=== PATIENT | female | born 1960 | race Caucasian/White ===

== ENCOUNTER → 2016-11-10 | Outpatient (CLI) | payer BC | LOC: GMAM 14:44 | PROVIDERS: ATTEND Family Medicine | DX: R31.29 Other microscopic hematuria (principal) ==

== ENCOUNTER → 2016-11-17 | Outpatient (CLI) | payer BC | LOC: GMA 17:08 | PROVIDERS: ATTEND Nurse Practitioner Family | DX: N30.00 Acute cystitis without hematuria (principal) ==

== ENCOUNTER → 2016-11-26 | Outpatient (CLI) | payer BC | LOC: GMAM 13:04 | PROVIDERS: ATTEND Family Medicine | DX: N39.0 Urinary tract infection, site not specified (principal) ==

== ENCOUNTER → 2016-12-14 | Outpatient (CLI) | payer BC | END | disposition home or self-care (01) | LOC: GMA 14:22 | PROVIDERS: ATTEND Nurse Practitioner Family | DX: N39.0 Urinary tract infection, site not specified (principal) ==

== ENCOUNTER → 2017-01-04 | Outpatient (CLI) | payer BC | LOC: GMA 18:02 | PROVIDERS: ATTEND Nurse Practitioner Family | DX: N30.00 Acute cystitis without hematuria (principal) ==

== ENCOUNTER → 2017-02-10 | Outpatient (CLI) | payer BC ==
--- NOTE | 2017-02-10 13:09 | RAD ---
EXAM DESCRIPTION: Knee,Left Complete CLINICAL HISTORY: 56 years,Female,PAIN IN LEFT KNEE COMPARISON: None FINDINGS: The left knee demonstrates no fractures, dislocations, or other acute bony abnormalities. The joint spaces severe complete loss of medial compartment. Large osteophyte changes seen in the medial compartment followed by the patellofemoral compartment lateral compartment. Mild loss of joint space and patellofemoral compartment. The soft tissues demonstrate calcification posterior to the knee joint multiple largest of the 1.9 cm. No joint effusion. IMPRESSION: Severe left knee medial compartment osteophytic changes and mild to moderate lateral and patellofemoral. And multiple loose bodies and/or bursal calcifications in the posterior fossa Electronically signed by: Sudhir Rojas MD 02/10/2017 1:07 PM CDT
--- NOTE | 2017-02-10 13:11 | RAD ---
EXAM DESCRIPTION: Pelvis CLINICAL HISTORY: 56 years, Female, PAIN IN LEFT HIP COMPARISON: None. FINDINGS: Pelvis demonstrates no fractures or other acute bony abnormalities. Joint spaces in the hips appear unremarkable for age. Posterior instrumentation fusion of the lower lumbar spine partially included exam. IMPRESSION: Age-appropriate pelvis and hips Electronically signed by: Sudhir Rojas MD 02/10/2017 1:09 PM CDT
== END | disposition home or self-care (01) ==
LOC: RAD 08:18
PROVIDERS: ATTEND Orthopaedic Surgery
DX: M25.562 Pain in left knee (principal); M25.552 Pain in left hip

== ENCOUNTER → 2017-07-14 | Outpatient (CLI) | payer BC ==
--- NOTE | 2017-07-14 16:54 | MRI ---
MRI left knee without contrast INDICATION: Knee pain chronic osteoarthrosis TECHNIQUE: Noncontrast MR imaging left knee standard protocol FINDINGS: There is a diffuse ill-defined high-grade tear of the ACL likely chronic with interstitial mucoid degeneration and ganglion formation. PCL is intact. There are numerous intra-articular bodies especially along the posterior aspect of the knee. There is also a moderate Santos's cyst with intracystic bodies. Severe [id number] osteoarthrosis throughout the medial tibiofemoral compartment Degenerative diffuse macerated tear of the medial meniscus with volume loss. Minimal degenerative change lateral meniscus. Minimal extensor tendinosis without rupture. There is grade 4 multifocal chondrosis medial patellar facet with subchondral edema and mild subchondral cystic change. Vague chondrosis of the trochlea. Marginal osteophytes are noted largest medially. Fairly large joint effusion with diffuse synovitis/debris. There is bowing and laxity of the MCL related to the osteoarthrosis of the medial tibiofemoral compartment. Mild interstitial fissuring of the distal conjoined tendon and bicep femoris. IMPRESSION: Severe osteoarthrosis of the medial tibiofemoral compartment with lower grade osteoarthrosis of the patellofemoral joint and lateral tibiofemoral compartments Diffuse macerated degenerative extruded medial meniscal tear Multiple intra-articular bodies Large joint effusion with synovitis/debris Remote/chronic high-grade ACL tear. Santos's cyst with intracystic bodies Electronically signed by: Jah Bishop MD 07/14/2017 4:52 PM CDT
--- NOTE | 2017-07-15 14:00 | MAM ---
EXAM DESCRIPTION: 3D Screening BILATERAL CLINICAL HISTORY: 57 yearsFemaleSCREENING. No complaints. No family history of breast cancer. Postmenopausal. HRT five or more years ago.. COMPARISON: 2-D digital screening bilateral study, 03/19/2014. No prior reports available. TECHNIQUE: Bilateral CC and MLO projection full-field images, 3-D tomosynthesis digital mammographic technique. Also bilateral synthesized CC/ MLO full-field images. CAD not utilized. FINDINGS: The breast parenchymal density pattern is: Scattered areas of fibroglandular density. No skin thickening or nipple retraction bilateral solitary microcalcifications. Bilateral intramammary lymph nodes. Bilateral vascular calcifications. No focal, stellate mass or density, focal asymmetry , and no suspicious microcalcifications bilaterally. Stable mammograms compared to prior study, taking into account differences in mammographic technique IMPRESSION: BI-RADS CATEGORY: 2 - BENIGN FINDINGS. FOLLOW UP: Routine digital bilateral screening, one year interval from July 2017. Written communication explaining the findings and follow-up, will be mailed to the patient and referring health care provider. According to the [employer], yearly mammograms are recommended starting at age 40 and continuing as long as a woman is in good health. Any breast change noted on a breast self-exam should be reported promptly to the patient's healthcare provider. Breast MRI is recommended for women with an approximately 20-25% or greater lifetime risk of breast cancer, including women with a strong family history of breast or ovarian cancer and women who have been treated for Hodgkin's disease. A negative mammographic report should not delay tissue diagnosis in patients with significant clinical history or physical findings. Extremely dense breast tissue limits the sensitivity of digital mammography. Electronically signed by: Be Abad MD 07/15/2017 1:59 PM CDT
== END | disposition home or self-care (01) ==
LOC: MRI 10:43
PROVIDERS: ATTEND Family Medicine
DX: Z12.31 Encounter for screening mammogram for malignant neoplasm of breast (principal); M17.12 Unilateral primary osteoarthritis, left knee; M71.22 Synovial cyst of popliteal space [Baker], left knee; M25.462 Effusion, left knee
CPT/HCPCS: 73721; 77063; G0202

== ENCOUNTER → 2018-08-03 | Outpatient (CLI) | payer BC | LOC: GMAM 17:50 | PROVIDERS: ATTEND Family Medicine | DX: E55.9 Vitamin D deficiency, unspecified (principal); R53.83 Other fatigue ==

== ENCOUNTER → 2019-02-05 | Outpatient (CLI) | payer BC | LOC: GMAM 11:47 | PROVIDERS: ATTEND Family Medicine | DX: Z00.00 Encounter for general adult medical examination without abnormal findings (principal) ==

== ENCOUNTER 2019-07-13 12:45 | Inpatient (IN) | payer BC ==
[2019-07-13] MEDS ORDERED: SODIUM CHLORIDE 0.9% 1000ML 1,000 ML IVS PRN (13:21)
[2019-07-13] MEDS ORDERED: ONDANSETRON INJ 4 MG/2 ML VIAL IV ONE (13:21)
[2019-07-13] MEDS ORDERED: KETOROLAC TROMETHAMINE INJ 30 MG/ML VIAL IV ONE (13:21)
[2019-07-13] MEDS ORDERED: SODIUM CHLORIDE 0.9% (FLUSH) 10 ML SYG IV PRN ×2 (13:21→19:48)
[2019-07-13] MEDS ORDERED: ACETAMINOPHEN 325 MG TAB PO ONE (13:23)
--- NOTE | 2019-07-13 13:23 | ED.PDOC ---
History of Present Illness - General Chief Complaint: Fever Stated Complaint: fever,PALACIOS,shaking Time Seen by Provider: 07/13/19 13:08 Source: patient - History of Present Illness Initial Comments: 59 yo female who presents with cc of fevers. Reports onset of illness 3 days ago. First began as ache in her low back which radiated around to LLQ. Then developed a fever with Tmax 103.1 F and reports has been spiking fevers around 103 F twice daily since then and having shaking for approx 30 mins until fever comes down with Tylenol/ibuprofen at home. Reports also some mild-moderate intermittent LLQ abd pain with radiation to left low back. Reports poor appetite and taking sips of water frequently at home but not eating many solids. Had some oatmeal yesterday and a little while later had 1 episode of large volume watery diarrhea but no other episodes of diarrhea reported. Reports nausea but no emesis. Reports mild sore throat, mild intermittent dry "nagging cough", and frequent body aches all over. Also reports frequent dull frontal headache which comes and goes, currently 8/10 severity, no radiation. Denies any neck pain or stiffness. Reports hx of frequent UTI's in the past but cur rently denies dysuria, hematuria. Not recently on Abx. No known recent sick contacts. States she was seen in the clinic 2 days ago and tested neg for flu and sent home and told she had a stomach bug. Review of Systems - Review of Systems Review of Systems: 07/13/19 13:29 see HPI All other Systems: Reviewed and Negative Past Medical History (General) - Patient Medical History Hx Stroke: No Hx of COPD: No Hx Congestive Heart Failure: No Hx Pacemaker: No Hx Hypertension: Yes Hx Diabetes: No Hx MRSA: No - Vaccination History Hx Influenza Vaccination: No Hx Pneumococcal Vaccination: Yes - Social History Hx Tobacco Use: Yes Family Medical History - Family History Mother Family History: Unknown Living Status: Still Living Physical Exam - Physical Exam General Appearance: Alert, No apparent distress Eye Exam: bilateral normal ENT Exam: normal ENT inspection, hearing grossly normal, TMs normal, pharynx normal Neck: non-tender, full range of motion, supple, normal inspection Respiratory: chest non-tender, lungs clear, normal breath sounds, no respiratory distress Cardiovascular/Chest: no murmur, tachycardia Gastrointestinal/Abdominal: soft, tenderness - moderate LUQ without guarding or rebound Extremity: normal range of motion, non-tender, no pedal edema, no calf tenderness Neurologic: no motor/sensory deficits, alert, normal mood/affect, oriented x 3 Skin Exam: normal color, warm/dry Lymphatic: no adenopathy Progress - Progress Progress: 07/13/19 13:31 Fevers -uncertain etiology as many nonspecific sx's. Suspect gastroenteritis/colitis most likely vs UTI vs diverticulitis vs PNA vs pharyngitis vs viral syndrome vs other. -pt with fever 101.3 F and HR 120s on arrival, BP normal, remainder of vitals stable, pt in NAD -obtain lactate, labs, UA, strep, CXR -place PIV, 1 L NS bolus, Toradol 30, Tylenol, Zofran 07/13/19 17:35 -Pt's labs revealed WBC 19,000 with 87% segs and no bands, lactate 1.1. Strep neg. UA reveals 5-10 WBC, 5-10 RBC, neg nitrites, 2+ bacteria - suspect possible UTI. Remainder of labs largely unremarkable. -Pt's HR improved to 100 following 2 L bolus, BP stable -discussed pt with Jesus Boss who accepts for admission for UTI, sepsis syndrome without severe features. Blood cx's x2 collected in ED. Begin on Rocephin 1 g IV. Hospitalist to consider CT A/P after admission. 07/13/19 13:21 Sodium Chloride 0.9% (Flush) [Saline Flush Syringe] 10 ml IV PRN PRN 07/13/19 14:07 STREP A SCREEN CULTURE Stat 07/13/19 15:14 BLOOD CULTURE Stat 07/13/19 17:36 ED Intent to Admit Routine Laboratory Results - last 24 hr 07/13/19 07/13/19 07/13/19 13:46 13:46 13:46 WBC 19.2 H RBC 4.36 Hgb 13.6 Hct 39.7 MCV 90.9 MCH 31.1 H MCHC 34.2 RDW 13.0 Plt Count 228 MPV 8.5 Absolute Neuts (auto) 16.70 H Absolute Lymphs (auto) 0.70 L Absolute Monos (auto) 1.70 H Absolute Eos (auto) 0.00 Absolute Basos (auto) 0.10 Neutrophils % 87.0 H Lymphocytes % 3.5 L Monocytes % 9.0 Eosinophils % 0.1 L Basophils % 0.4 Sodium 133 L Potassium 3.3 L Chloride 94 L Carbon Dioxide 24 Anion Gap 18.3 H BUN 16 Creatinine 0.66 BUN/Creatinine Ratio 24.2 H Random Glucose 143 H Serum Osmolality 270.0 L Lactic Acid 1.1 Calcium 9.0 Total Bilirubin 0.7 Direct Bilirubin 0.2 Indirect Bilirubin 0.5 AST 19 ALT 22 Alkaline Phosphatase 86 Serum Total Protein 8.0 Albumin 3.7 Urine Color Urine Appearance Urine pH Ur Specific Dickens Urine Protein Urine Glucose (UA) Urine Ketones Urine Blood Urine Nitrite Urine Bilirubin Urine Urobilinogen Ur Leukocyte Esterase Urine RBC Urine WBC Ur Epithelial Cells Urine Bacteria Group A Strep Rapid 07/13/19 07/13/19 14:07 15:14 WBC RBC Hgb Hct MCV MCH MCHC RDW Plt Count MPV Absolute Neuts (auto) Absolute Lymphs (auto) Absolute Monos (auto) Absolute Eos (auto) Absolute Basos (auto) Neutrophils % Lymphocytes % Monocytes % Eosinophils % Basophils % Sodium Potassium Chloride Carbon Dioxide Anion Gap BUN Creatinine BUN/Creatinine Ratio Random Glucose Serum Osmolality Lactic Acid Calcium Total Bilirubin Direct Bilirubin Indirect Bilirubin AST ALT Alkaline Phosphatase Serum Total Protein Albumin Urine Color Yellow Urine Appearance Cloudy Urine pH 6.0 Ur Specific Dickens 1.015 Urine Protein 100 H Urine Glucose (UA) Negative Urine Ketones 40 H Urine Blood Moderate H Urine Nitrite Negative Urine Bilirubin Small H Urine Urobilinogen 1.0 Ur Leukocyte Esterase Negative Urine RBC 5-10 H Urine WBC 5-10 H Ur Epithelial Cells 3-5 Urine Bacteria 2+ H Group A Strep Rapid Negative Departure - Departure Clinical Impression: UTI (urinary tract infection) Qualifiers: Urinary tract infection type: acute cystitis Hematuria presence: with hematuria Qualified Code(s): N30.01 - Acute cystitis with hematuria Disposition: Admit Patient Condition: Fair Home Medications: Ambulatory Orders RX: Hctz 25 mg/Triamterene 37.5 mg [Dyazide-25] 0.5 ea PO DAILY 10/25/16 Black Cohosh (Cimicifuga [place] [Remifemin] 40 mg PO DAILY 07/13/19 Celecoxib [Celebrex] 200 mg PO DAILY 07/13/19 Montelukast [Singulair] 10 mg PO DAILY 07/13/19 Decision To Admit - Decistion To Admit Decision to Admit Reason: Medical Nature Decision to Admit Date: 07/13/19 Decision to Admit Time: 17:35
--- NOTE | 2019-07-13 14:18 | RAD ---
EXAM DESCRIPTION: Chest,2 Views: CR/ CLINICAL HISTORY: 59 years Female cough, fevers COMPARISON: 2 view chest July 2018. TECHNIQUE: Two views. PA and Lateral. FINDINGS: Lungs: Moderate inflation. Minimal perihilar peribronchial wall cuffing. No consolidating infiltrate. Pleural spaces: No effusion or pneumothorax bilaterally. Heart: Normal size. Pulmonary Vascularity: Not increased. Mediastinum: Not widened. Aorta: Unremarkable. Bony Thorax/Spine: No acute bony thoracic abnormalities. IMPRESSION: Bronchitis versus viral pneumonitis with no air trapping. Bacterial pneumonia unlikely. This could be chronic or recurrent, with comparison to prior chest x-ray July 2018 showing minimal change. Electronically signed by: Be Abad MD 07/13/2019 2:17 PM CDT
[2019-07-13] MEDS ORDERED: SODIUM CHLORIDE 0.9% 1000ML 1,000 ML IVS ONE (14:51)
[2019-07-13] MEDS ORDERED: POTASSIUM CHLORIDE 20 MEQ TAB PO ONE (14:53)
[2019-07-13] MEDS ORDERED: cefTRIAXone SODIUM 1 GM in SODIUM CHL 0.9% 50ML MIN-BAG+ 50 ML IVPB ONE (17:30)
[2019-07-13] MEDS ORDERED: cefTRIAXone SODIUM 1 GM VIAL ONE (17:37)
[2019-07-13] MEDS ORDERED: SODIUM CHL 0.9% 50ML MIN-BAG+ 50 ML IVPB ONE ×2 (17:37→22:16)
--- NOTE | 2019-07-13 18:11 | HP ---
SUPERVISING PHYSICIAN: Ayaan Vázquez MD CHIEF COMPLAINT: Fever with left-sided flank pain. HISTORY OF PRESENT ILLNESS: Ms. Qiu is a 59 year-old female patient that initially presented to the Emergency Room complaining of fever. She reported that she has been running a fever periodically over the last three days. She noted that she first developed some pain that was an ache in her lower back which radiated around to her left lower quadrant. She noted the fever had a T-max of 103.1 and that she was spiking a fever at least twice a day and having some rigors for well over 30 minutes but was responding to Tylenol at home. She noted she was having intermittent left lower quadrant abdominal pain radiating to her lower back. She denied any significant nausea or vomiting but was having some episodes of watery diarrhea with any oral intake. She does have a longstanding history of chronic urinary tract infections and at one point has been on low-dose antibiotics for prophylaxis. She was denying any significant dysuria or hematuria. She was actually seen in the clinic two days previously and tested negative for the flu and was sent home and told she had a stomach bug. On presentation to the Emergency Room today, she was again running a fever at 101.8. Her labs showed she had a normal lactic acid at 1.1, white count was elevated though at 19,200 with a left shift. Her chemistries showed a normal kidney femoral groove with creatinine at 0.6 with low potassium and sodium levels. Her urinalysis did show a significant pyuria and 3+ bacteria with 5 to 10 WBCs on microscopic showing a moderate amount of blood but negative for nitrites. She did have a group A strep screen that was negative. Blood cultures were completed. She was started on antibiotic therapy initially in the Emergency Room with Rocephin. She was given two liters of fluid as she was again running a significant amount of fever but was showing to be stable with a blood pressure of 109/74, oxygen saturation 98% on room air. Given her symptomatology, fever, leukocytosis and urinary tract infection, the patient is now going to be admitted for continuation and evaluate of fever, uncertain etiology, more likely related to underlying urinary tract infection. She is admitted in stable condition. PAST MEDICAL HISTORY: 1. Hypertension. 2. Chronic back pain with previous fusion surgery. 3. Chronic urinary tract infections. PAST SURGICAL HISTORY: 1. Sinuplasty in 2013. 2. Hysterectomy in 1992. 3. Bilateral big toes repaired with metal rods in 2013. 4. L2 to L5 LIF with open PDIF on 09/21/16. 5. Scope of left knee. HOME MEDICATIONS: 1. Singulair 2 mg daily. 2. Dyazide 25, half tablet daily. 3. Celebrex 200 mg daily. 4. Remifemin 40 mg daily. ALLERGIES: Cephalosporins, Cefdinir. FAMILY HISTORY: Father at age 77, secondary to non-Hodgkin's lymphoma as well as he had history of hypertension and myocardial infarctions, throat cancer and chronic obstructive pulmonary disease. Mother has positive history for hypertension and TIAs. SOCIAL HISTORY: The patient lives at [facility]. She is a homemaker, retired. She is . She has a history of smoking in the past, but quit in 2013. She drinks alcohol on a social basis, 1 to 2 drinks per week on average. She denies any illicit drug abuse. REVIEW OF SYSTEMS: CONSTITUTIONAL: Positive for general malaise with chills, rigors and fever. T- max 103. HEENT: Denies nasal congestion, earache, or sore throat. Positive for headaches, negative for neck pain. RESPIRATORY: Denies shortness of breath, coughing or wheezing. CARDIOVASCULAR: Denies chest pain or palpitations or syncopal episodes. GASTROINTESTINAL: Negative for nausea or vomiting, reports some mild watery diarrhea and as noted in the history of present illness, left lower quadrant pain. GENITOURINARY: Denies recent treatment for urinary tract infection or any antibiotics within the last 90 days and denies dysuria or hematuria but does have some left-sided CVA tenderness and flank pain. NEUROLOGIC: History of previous back surgery due to chronic back pain with left-sided radiculopathy and lower extremity from mid-calf down being chronically numb and cold but no reported seizures, ataxia. PHYSICAL EXAMINATION: VITAL SIGNS: Temperature initially was at 101.8, heart rate 123, blood pressure 109/74, respirations 20, oxygen saturation 98% on room air. Admission weight 92.5 kg. GENERAL: The patient appears to be resting comfortably and in no obvious acute distress. She is alert. HEENT: Tympanic membranes are clear bilaterally. Oropharynx is pink and moist without any lesions. NECK: Supple, non-tender, full range of motion. No jugular venous distention. CHEST: Lungs are clear to auscultation bilaterally without rhonchi, rales, or wheezes. CARDIOVASCULAR: Regular rate and rhythm without appreciable murmurs, rubs, or gallops. ABDOMEN: Soft, non-tender. BACK: Exam demonstrates some left CVA tenderness. No trauma or vertebral tenderness. EXTREMITIES: Without cyanosis, clubbing, or edema. NEUROLOGIC: She is alert and oriented x 3. Cranial nerves II through XII are grossly intact. Facial features are symmetrical. Extraocular movements are within normal limits, no notable nystagmus. LABORATORY: White count shows a leukocytosis of 19,200 with a left shift. Hemoglobin 13.6, hematocrit 39.7. Chemistries show a low sodium of 133 and potassium of 3.3 with BUN of 16, creatinine 0.66 with anion gap elevated at 18. Lactic acid initially was 1.1. Liver functions were all within normal limits. Urinalysis shows 100 of protein with moderate amount of blood, small amount of leukoesterase, negative for any nitrites. Macroscopic revealed 5 to 10 RBCs, 5 to 10 WBCs with 2+ bacteria. MICROBIOLOGY: Urine culture pending. Group A strep cultures pending. Blood cultures pending. RADIOLOGY: Initially in the Emergency Room she had a chest x-ray and per radiology interpretation shows bronchitis versus viral pneumonitis with no air trapping. Bronchial pneumonia unlikely. Could represent recurrent with comparison to prior chest x-ray July 2018 showing minimal change. Abdominal/pelvic CT with contrast per radiology interpretation showed mild heterogeneous decreased attenuation of the left kidney, most concerning for pyelonephritis. Recent passed stone considered less likely with a mild hyperdense material lying in the right colon which could represent hemorrhage, this could be secondary to ingestive contents. ASSESSMENT: 1. Acute pyelonephritis with patient having a history of multiple urinary tract infections primarily caused by E. coli which is showing to be fairly drug-resistant. 2. Significant inflammatory response with patient showing a leukocytosis, tachycardia secondary to #1. 3. Hypertension. 4. Chronic back pain with previous lumbar fusion. 5. Electrolyte imbalance with a hyponatremia, hypokalemia, likely prerenal azotemia due to some dehydration. 6. Moderate dehydration secondary to #1. PLAN: We will admit the patient for continuation of evaluation and treatment of left-sided pyelonephritis. She was given Rocephin in the Emergency Room and actually shows an allergy to cephalosporins but actually did not have any kind of reaction. Given her past culture results, well over 8 that I could find, she was growing E. coli that was becoming much more resistant, in fact the last several were actually resistant to Bactrim. Levaquin, Ciprofloxacin, but sensitive to meropenem. We will await culture results but in the meantime, put her on meropenem. She will be on DVT prophylaxis per protocol. She will be on regular diet as tolerated. We will start her medications once those have been updated and verified. We will anticipate her length of stay to be 2 to 3 days. Until we can get a culture back to further target antibiotic therapy and transition her to outpatient management, we will continue to monitor and treat as needed. #[id number] [facility]
[2019-07-13] MEDS ORDERED: KCL 20 MEQ/NS 1,000 ML IVS PRN (19:47)
[2019-07-13] MEDS ORDERED: ONDANSETRON INJ 4 MG/2 ML VIAL IV PRN (19:48)
[2019-07-13] MEDS ORDERED: MAGNESIUM HYDROXIDE 30 ML UD PO PRN (19:48)
[2019-07-13] MEDS ORDERED: ALUM & MAG HYDROX-SIMETHICONE 30 ML UD PO PRN (19:48)
[2019-07-13] MEDS ORDERED: MORPHINE SULFATE INJ 10 MG/ML VIAL IV PRN (19:48)
[2019-07-13] MEDS: IV SET AND CAP CHANGE INJ INJ SCH (20:02)
--- NOTE | 2019-07-13 21:05 | CT ---
EXAM: CT Abdomen and Pelvis With Intravenous Contrast CLINICAL HISTORY: Fever, UTI LLQ pain, Diverticulitis vs Pyelo TECHNIQUE: Axial computed tomography images of the abdomen and pelvis with intravenous contrast. Sagittal and coronal reformatted images were created and reviewed. This CT exam was performed using one or more of the following dose reduction techniques: automated exposure control, adjustment of the mA and/or kV according to patient size, and/or use of iterative reconstruction technique. COMPARISON: No relevant prior studies available. FINDINGS: Limitations: None. Lung bases: Unremarkable. No mass. No consolidation. ABDOMEN: Liver: Unremarkable. No mass. Gallbladder and bile ducts: Unremarkable. No calcified stones. No ductal dilation. Pancreas: Unremarkable. No mass. No ductal dilation. Spleen: The spleen is enlarged measuring 13.6 cm long. Adrenals: Unremarkable. No mass. Kidneys and ureters: There is mild diminished attenuation of the left kidney relative to the right. No hydronephrosis or stone. Stomach and bowel: There is a small amount of dense fluid layering in the right colon. No obstruction. No mucosal thickening. PELVIS: Appendix: No findings to suggest acute appendicitis. Bladder: Unremarkable. No mass. Reproductive: Hysterectomy. ABDOMEN and PELVIS: Intraperitoneal space: Unremarkable. No free air. No significant fluid collection. Bones/joints: No acute fracture. No dislocation. Soft tissues: Unremarkable. Vasculature: Unremarkable. No abdominal aortic aneurysm. Lymph nodes: Unremarkable. No enlarged lymph nodes. IMPRESSION: 1. Mild heterogeneously decreased attenuation of the left kidney most concerning for pyelonephritis. Recently passed stone considered less likely. 2. There is mild hyperdense material layering in the right colon. While this could represent hemorrhage, this could also be secondary to ingested contents. Electronically signed by: Brandi Plummer MD 07/13/2019 9:03 PM CDT
[2019-07-13] MEDS: ACETAMINOPHEN 325 MG TAB PO PRN (21:24)
[2019-07-13] MEDS ORDERED: MEROPENEM 1 GM VIAL IVPB ONE (22:17)
[2019-07-13] MEDS: PHENAZOPYRIDINE HCL 200 MG TAB PO SCH (22:20)
[2019-07-13] MEDS: KETOROLAC TROMETHAMINE INJ 30 MG/ML VIAL IV SCH (22:20)
[2019-07-13] MEDS: MEROPENEM 1 GM in SODIUM CHL 0.9% 50ML MIN-BAG+ 50 ML IVPB SCH (22:21)
[2019-07-14] MEDS: ACETAMINOPHEN 325 MG TAB PO PRN ×3 (03:28→18:56)
[2019-07-14] MEDS: KETOROLAC TROMETHAMINE INJ 30 MG/ML VIAL IV SCH ×2 (04:05→09:36)
[2019-07-14] MEDS ORDERED: MEROPENEM 1 GM VIAL IVPB ONE ×3 (06:02→19:11)
[2019-07-14] MEDS ORDERED: SODIUM CHL 0.9% 50ML MIN-BAG+ 50 ML IVPB ONE ×3 (06:02→19:10)
[2019-07-14] MEDS: MEROPENEM 1 GM in SODIUM CHL 0.9% 50ML MIN-BAG+ 50 ML IVPB SCH ×3 (06:04→21:40)
[2019-07-14] MEDS ORDERED: BIFIDOBACTERIUM INFANTIS 4 MG CAP ONE (08:20)
[2019-07-14] MEDS: PHENAZOPYRIDINE HCL 200 MG TAB PO SCH ×2 (08:25→16:21)
[2019-07-14] MEDS: BIFIDOBACTERIUM INFANTIS 4 MG CAP PO SCH ×2 (08:26→20:26)
[2019-07-14] MEDS: CELECOXIB 100 MG CAP PO SCH (09:34)
[2019-07-14] MEDS: MONTELUKAST 10 MG TAB PO SCH (09:34)
[2019-07-14] MEDS: CETIRIZINE HCL 10 MG TAB PO SCH (09:34)
[2019-07-14] MEDS: ENOXAPARIN SODIUM 40 MG/0.4 ML SYG SUBCU SCH (09:35)
[2019-07-14] MEDS: BLACK COHOSH PO SCH ×2 (09:35→20:26)
[2019-07-14] MEDS ORDERED: LOPERAMIDE CAP 2 MG CAP PO ONE (10:34)
[2019-07-14] MEDS: KCL 20MEQ/D5NS 1,000 ML IVS PRN (12:56)
--- NOTE | 2019-07-14 14:52 | PN ---
DATE: 07/14/19 SUPERVISING PHYSICIAN: Ayaan Vázquez M.D. SUBJECTIVE: The patient is doing well. She does continue to have a significant amount of diarrhea but has not had any nausea. She did run another low-grade fever this morning of 100.4 but has not had any chest pains or palpitations. OBJECTIVE: VITAL SIGNS: T max 100.4, pulse 92, blood pressure 138/78, respirations 20, satting 96% on room air. CHEST: Lung sounds are clear to auscultation bilaterally without any rhonchi, wheezing or rales. HEART: Regular rate and rhythm without appreciable murmurs, gallops, or rubs. ABDOMEN: Soft, non-tender. Positive bowel sounds. She still has some CVA tenderness on the left. EXTREMITIES: Without any clubbing, cyanosis or edema. LABORATORY: White count is down to 12,600, hemoglobin 10.7, hematocrit 31.5, platelet count 193,000. Differential does continue to show a left shift but no bands. Chemistries: Sodium is up to 134, potassium is now normalized at 3.7, carbon dioxide 21 with anion gap normalized at 16.7, BUN is slightly elevated at 19 with creatinine 0.7. Stool occult blood was negative. MICROBIOLOGY: Blood cultures remain negative. Urine culture is pending. C- Difficile toxin A and B was negative. RADIOLOGY: No additional radiographic studies. ASSESSMENT: 1. Acute pyelonephritis with patient having a history of multiple urinary tract infections primarily caused by E. coli which is showing to be fairly drug-resistant. 2. Significant inflammatory response with patient showing a leukocytosis, tachycardia secondary to #1. 3. Hypertension. 4. Chronic back pain with previous lumbar fusion. 5. Electrolyte imbalance with a hyponatremia now showing improvement with fluids with hypokalemia back to baseline levels. 6. Moderate dehydration secondary to #1. PLAN: Will continue for treatment of left sided pyelonephritis with Meropenem until we get a culture back to target antibiotic therapy. I have encouraged her to take a probiotic as well as a regular diet to attempt to alleviate some of the loose stools. C-Diffs have been negative as of current. She is on DVT prophylaxis as per protocol. Until we can transition her to outpatient management will continue to monitor and treat as needed. #[id number] [facility]
[2019-07-14] MEDS ORDERED: AZITHROMYCIN IV 500 MG VIAL IVPB ONE (16:42)
[2019-07-14] MEDS ORDERED: SODIUM CHLORIDE 0.9% 250ML 250 ML ONE (16:42)
[2019-07-14] MEDS: BENZONATATE PERLES 100 MG CAP PO PRN ×2 (16:46→19:18)
[2019-07-14] MEDS: AZITHROMYCIN IV 500 MG in SODIUM CHLORIDE 0.9% 250ML 250 ML IVPB SCH (17:43)
[2019-07-15] MEDS: BENZONATATE PERLES 100 MG CAP PO PRN ×2 (00:56→06:36)
[2019-07-15] MEDS: ACETAMINOPHEN 325 MG TAB PO PRN ×3 (01:15→16:31)
[2019-07-15] MEDS: KCL 20MEQ/D5NS 1,000 ML IVS PRN (01:19)
[2019-07-15] MEDS ORDERED: MEROPENEM 1 GM VIAL IVPB ONE ×4 (05:35→19:51)
[2019-07-15] MEDS ORDERED: SODIUM CHL 0.9% 50ML MIN-BAG+ 50 ML IVPB ONE ×4 (05:35→19:51)
[2019-07-15] MEDS: MEROPENEM 1 GM in SODIUM CHL 0.9% 50ML MIN-BAG+ 50 ML IVPB SCH ×3 (05:44→22:10)
[2019-07-15] MEDS: CELECOXIB 100 MG CAP PO SCH (08:18)
[2019-07-15] MEDS: BLACK COHOSH PO SCH ×2 (08:19→20:15)
[2019-07-15] MEDS: BIFIDOBACTERIUM INFANTIS 4 MG CAP PO SCH ×2 (08:19→20:15)
[2019-07-15] MEDS: CETIRIZINE HCL 10 MG TAB PO SCH (08:19)
[2019-07-15] MEDS: MONTELUKAST 10 MG TAB PO SCH (08:19)
[2019-07-15] MEDS: ENOXAPARIN SODIUM 40 MG/0.4 ML SYG SUBCU SCH (08:19)
[2019-07-15] MEDS ORDERED: OXYMETAZOLINE NASAL SPRAY 15 ML BTTL BNAS PRN (09:02)
[2019-07-15] MEDS: guaiFENesin/DEXTROMETH SYRUP 5 ML UD PO PRN ×3 (09:09→22:28)
--- NOTE | 2019-07-15 09:31 | RAD ---
EXAM DESCRIPTION: Chest,2 Views CLINICAL HISTORY: acute pyelo, fever with cough ;recent bronchitis COMPARISON: 07/13/2019 TECHNIQUE: PA/lateral FINDINGS/IMPRESSION: Mild central pulmonary vascular congestion. No focal consolidation, significant pneumothorax or pleural effusion. The heart is normal in size. No acute osseous abnormality. Partially visualized upper lumbar spine hardware fixation. Electronically signed by: Travis Barrera DO 07/15/2019 9:29 AM CDT
[2019-07-15] MEDS ORDERED: SODIUM CHLORIDE 0.9% (FLUSH) 10 ML SYG IV ONE (10:14)
[2019-07-15] MEDS: HCTZ PO SCH (11:05)
[2019-07-15] MEDS: TRIAMTERENE 37.5 MG PO SCH (11:05)
[2019-07-15] MEDS: SODIUM CHLORIDE 0.9% (FLUSH) 10 ML SYG IV SCH ×2 (11:08→20:16)
[2019-07-15] MEDS ORDERED: ALBUTEROL SULFATE 2.5 MG/3 ML VIAL NEB PRN (11:48)
[2019-07-15] MEDS: IPRATROPIUM/ALBUTEROL 3 ML VIAL NEB SCH ×3 (12:59→20:15)
[2019-07-15] MEDS: IBUPROFEN 400 MG TAB PO PRN (16:31)
[2019-07-15] MEDS ORDERED: SODIUM CHLORIDE 0.9% 250ML 250 ML ONE (16:46)
[2019-07-15] MEDS ORDERED: AZITHROMYCIN IV 500 MG VIAL IVPB ONE (16:46)
--- NOTE | 2019-07-15 16:56 | PN ---
DATE: 07/15/19 SUPERVISING PHYSICIAN: Ayaan Vázquez M.D. SUBJECTIVE: The patient continues to run a fever and has chills. She has not had any nausea or vomiting but is still having a little bit of diarrhea, although she did have some luck with Lomotil. OBJECTIVE: VITAL SIGNS: T max 102.7, blood pressure 106/69, respirations 18, satting 97% on room air. I's and O's show a negative balance of 25. Weight 92.5. GENERAL: The patient appears to be in no acute distress. She is actually resting comfortably. She is alert. CHEST: Lung sounds are diminished but no significant rales or rhonchi are noted. HEART: Regular rate and rhythm. ABDOMEN: Soft, non-tender. Positive bowel sounds but she does continue to have left CVA tenderness. EXTREMITIES: Without any edema. NEUROLOGIC: She is alert and oriented times three. LABORATORY: White count now is normalized to 9,300, hemoglobin 10.9, hematocrit 31.6 which are showing to be stable. Platelets 223,000. Differential now shows to be without a left shift. Chemistries: Sodium is normalized to 138, potassium is a little bit low at 3.3, BUN now is normal at 11 with creatinine of 0.5. Strep A rapid was negative. Stool occult blood was negative. C-Diff was negative. MICROBIOLOGY: Initial blood cultures remain negative at 24 hours. A new set was drawn this morning. Group A Strep culture is still pending. RADIOLOGY: Chest x-ray this morning per radiology interpretation of a 2 view chest shows mild centra pulmonary vascular congestion but no focal consolidation or significant pneumothorax or pleural effusion. ASSESSMENT: 1. Acute pyelonephritis left side with a longstanding history of multiple urinary tract infections previously caused by fairly drug resistant E. coli awaiting culture results with the patient being on parenteral antibiotics to include Meropenem. 2. Inflammatory response with continued fever, mild tachycardia and leukocytosis having resolved felt to be secondary to #1 but cannot completely rule out developing pneumonia. 3. Acute on chronic bronchitis with the patient on Meropenem and azithromycin. 4. Hypertension showing to be stable. 5. Chronic back pain with previous lumbar fusion. 6. Hyponatremia, resolved with fluids. Now with just a mild hypokalemia. 7. Moderate dehydration now euvolemic and saline locked. 8. Diarrhea with negative C-Diffs that started prior to admission and initiation of antibiotics, possible viral gastroenteritis but the patient showing to be responding to treatment. PLAN: Given that she has bronchitis and continues to run a fever despite being on Meropenem, will go ahead and start her on some azithromycin to cover for any atypicals should she be developing a pneumonia process. I went ahead and started her on aggressive pulmonary hygiene with DuoNeb treatments and chest percussive therapy. She is having some mid cough which she is responding well to Robitussin. We continue with Meropenem for coverage of the pyelonephritis awaiting culture results. Should she continue to show a significant amount of fever overnight and we do not have a culture back, may need to consider just doing an ultrasound of her kidneys to make sure that she is not showing any complications such as an abscess. She was scanned initially on admission which was on the . If she does continue to show a fever this afternoon I may go ahead and CT her again, but I think she could probably do well with just an ultrasound in the morning. I am not sure that she is really septic at this point but she does remain on coverage for concerns for possibly a gram negative bacteremia, therefore I ole a second set of cultures this morning. Hopefully the culture results from the urine will be available by Tuesday but until she is afebrile at least for 24 hours and we have culture results, will continue to monitor and treat as needed as an inpatient. #[id number] [facility]
[2019-07-15] MEDS: AZITHROMYCIN IV 500 MG in SODIUM CHLORIDE 0.9% 250ML 250 ML IVPB SCH (16:59)
[2019-07-16] MEDS: ACETAMINOPHEN 325 MG TAB PO PRN ×3 (02:24→20:11)
[2019-07-16] MEDS: MEROPENEM 1 GM in SODIUM CHL 0.9% 50ML MIN-BAG+ 50 ML IVPB SCH ×3 (06:04→21:35)
[2019-07-16] MEDS: IPRATROPIUM/ALBUTEROL 3 ML VIAL NEB SCH ×4 (07:40→19:42)
[2019-07-16] MEDS: CELECOXIB 100 MG CAP PO SCH (07:52)
[2019-07-16] MEDS: TRIAMTERENE 37.5 MG PO SCH (08:07)
[2019-07-16] MEDS: HCTZ PO SCH (08:07)
[2019-07-16] MEDS: BIFIDOBACTERIUM INFANTIS 4 MG CAP PO SCH ×2 (08:07→20:06)
[2019-07-16] MEDS: MONTELUKAST 10 MG TAB PO SCH (08:07)
[2019-07-16] MEDS: CETIRIZINE HCL 10 MG TAB PO SCH (08:07)
[2019-07-16] MEDS: SODIUM CHLORIDE 0.9% (FLUSH) 10 ML SYG IV SCH ×2 (08:08→21:03)
[2019-07-16] MEDS: BLACK COHOSH PO SCH ×2 (08:12→20:05)
[2019-07-16] MEDS: BENZONATATE PERLES 100 MG CAP PO PRN ×2 (08:12→20:06)
[2019-07-16] MEDS: guaiFENesin/DEXTROMETH SYRUP 5 ML UD PO PRN ×3 (08:12→20:07)
[2019-07-16] MEDS: ENOXAPARIN SODIUM 40 MG/0.4 ML SYG SUBCU SCH (08:24)
[2019-07-16] MEDS ORDERED: POTASSIUM CHLORIDE 20 MEQ TAB PO ONE (09:11)
--- NOTE | 2019-07-16 11:28 | US ---
PROVIDED CLINICAL HISTORY/REASON FOR EXAM: pyelonephritis TECHNIQUE: Real-time sonographic examination of the kidneys and bladder was performed by a hat braider and multiple images were saved. COMPARISON: July 13, 2019 FINDINGS: RIGHT KIDNEY: The right kidney measures 10.1 x 4.5 x 5.2 cm. The kidney is normal in size, morphology, and echogenicity, without evidence of mass, hydronephrosis, or calculus. LEFT KIDNEY: The left kidney measures 12.5 x 5.8 x 5.0 cm. The kidney is normal in size, morphology, and echogenicity, without evidence of mass, hydronephrosis, or calculus. BLADDER: The bladder is not imaged. IMPRESSION: Unremarkable renal ultrasound. Electronically signed by: Michael Estrada MD 07/16/2019 11:26 AM CDT
[2019-07-16] MEDS ORDERED: MEROPENEM 1 GM VIAL IVPB ONE ×2 (14:01→19:24)
[2019-07-16] MEDS ORDERED: SODIUM CHL 0.9% 50ML MIN-BAG+ 50 ML IVPB ONE (14:01)
--- NOTE | 2019-07-16 14:40 | PN ---
SUPERVISING PHYSICIAN: Ever Richardson MD DATE: 07/16/19 SUBJECTIVE: The patient states she feels a little bit better today. However, she still has run a fever. No nausea or vomiting complaints today. OBJECTIVE: VITAL SIGNS: Blood pressure 137/71. Heart rate 97. Respiratory rate 18. Temperature 98.4. Oxygen saturation 100%. GENERAL: Ms. Qiu is a 59-year-old female in no active distress. NEUROLOGIC: Alert and oriented. LUNGS: Clear to auscultation bilaterally. CARDIOVASCULAR: Regular rate and rhythm. Normal S1, S2. ABDOMEN: Soft. Positive bowel sounds. EXTREMITIES: Lower extremities with no significant edema. LABORATORY: Urine culture from yesterday is showing gram negative bacilli. We are still awaiting final results. White count 6.3, hemoglobin 10.0, hematocrit 29.4, platelet count 213. Chemistry shows low potassium at 3.0, otherwise unremarkable. ASSESSMENT: 1. Acute left sided pyelonephritis with a history of multiple drug resistant organism and Escherichia coli. 2. Systemic inflammatory response secondary to #1. 3. Acute on chronic bronchitis. 4. Hypertension. 5. Chronic back pain. 6. Hyponatremia. 7. Moderate dehydration. 8. Diarrhea. PLAN: White count improved dramatically with the current antibiotics, so we will not change those. We are still awaiting final culture results. I did get a sonogram of her kidneys today as that was discussed with her yesterday to rule out any significant abnormalities that may or may not have been seen on CT scan. She is still having some coughing, but she says it improves with nebulizers. She does not take inhalers at home. I do suggest as an outpatient she get a full spirometry given that she does have the history of smoking and could have a degree of chronic obstructive pulmonary disease. #[id number] [facility]
[2019-07-16] MEDS ORDERED: SODIUM CHLORIDE 0.9% 250ML 250 ML ONE (16:41)
[2019-07-16] MEDS ORDERED: AZITHROMYCIN IV 500 MG VIAL IVPB ONE (16:41)
[2019-07-16] MEDS: AZITHROMYCIN IV 500 MG in SODIUM CHLORIDE 0.9% 250ML 250 ML IVPB SCH (17:18)
[2019-07-16] MEDS ORDERED: SODIUM CHLORIDE 0.9% 50ML 50 ML ONE (19:24)
[2019-07-16] MEDS: IV SET AND CAP CHANGE INJ INJ SCH (21:03)
[2019-07-17] MEDS ORDERED: SODIUM CHL 0.9% 50ML MIN-BAG+ 50 ML IVPB ONE (04:48)
[2019-07-17] MEDS ORDERED: MEROPENEM 1 GM VIAL IVPB ONE (04:49)
[2019-07-17] MEDS: MEROPENEM 1 GM in SODIUM CHL 0.9% 50ML MIN-BAG+ 50 ML IVPB SCH (05:19)
[2019-07-17] MEDS: IBUPROFEN 400 MG TAB PO PRN (05:19)
[2019-07-17] MEDS: BENZONATATE PERLES 100 MG CAP PO PRN (05:55)
[2019-07-17] MEDS: guaiFENesin/DEXTROMETH SYRUP 5 ML UD PO PRN (05:55)
[2019-07-17 06:03] VITALS: BP 143/81; TEMP 98.8
[2019-07-17] MEDS: IPRATROPIUM/ALBUTEROL 3 ML VIAL NEB SCH (07:37)
[2019-07-17 07:39] VITALS: O2SAT 99
[2019-07-17] MEDS: CELECOXIB 100 MG CAP PO SCH (08:32)
[2019-07-17] MEDS: CETIRIZINE HCL 10 MG TAB PO SCH (08:33)
[2019-07-17] MEDS: MONTELUKAST 10 MG TAB PO SCH (08:33)
[2019-07-17] MEDS: BIFIDOBACTERIUM INFANTIS 4 MG CAP PO SCH (08:33)
[2019-07-17] MEDS: ENOXAPARIN SODIUM 40 MG/0.4 ML SYG SUBCU SCH ×2 (08:33)
[2019-07-17] MEDS: HCTZ PO SCH (08:35)
[2019-07-17] MEDS: TRIAMTERENE 37.5 MG PO SCH (08:35)
[2019-07-17] MEDS: BLACK COHOSH PO SCH (08:35)
[2019-07-17] MEDS: SODIUM CHLORIDE 0.9% (FLUSH) 10 ML SYG IV SCH (08:36)
[2019-07-17] MEDS ORDERED: POTASSIUM CHLORIDE 20 MEQ TAB PO ONE (09:19)
[2019-07-17] MEDS ORDERED: POTASSIUM CHLORIDE 20 MEQ TAB ONE (09:41)
--- NOTE | 2019-07-17 10:03 | DS ---
SUPERVISING PHYSICIAN: Ever Richardson MD ADMISSION DIAGNOSIS: 1. Acute pyelonephritis with a history urinary tract infections with Escherichia coli showing drug resistance. 2. Systemic inflammatory response secondary to #1. 3. Hypertension. 4. Chronic back pain. 5. Electrolyte imbalance. 6. Dehydration. DISCHARGE DIAGNOSIS: 1. Acute left sided pyelonephritis with a history multidrug resistant organisms, which grew Escherichia coli with multiple resistance, but sensitive to ceftriaxone and Macrobid. 2. Systemic inflammatory response secondary to #1. 3. Acute on chronic bronchitis. 4. Hypertension. 5. Chronic back pain. 6. Hyponatremia. 7. Moderate dehydration. 8. Diarrhea. HOSPITAL COURSE: This is a 59-year-old female who presented to the Emergency Room with fever. She had run the fever over the 3 days prior to admission. She also developed an ache in her back which radiated around to the left lower quadrant. She took her temperature at home and it was 103.1. She has a history of chronic urinary tract infections and at one time was on low-dose antibiotics for prophylaxis. When she came to the Emergency Room, her temperature was 101.8. White count was 19.2. She had a urinalysis which showed pyuria and 3+ bacteria with 5 to 10 WBCs on microscopic. She had a CT scan done of the pelvis which was consistent with left kidney pyelonephritis. She was placed on Merrem and was also diagnosed with bronchitis, so was placed in azithromycin. She stepwise improved, but continued to run a fever. On 07/16/19, a renal ultrasound was done to rule out any other abnormalities, which was negative. On 07/16/19, also was the first day she did not run any fever. Therefore, today on 07/17/19, the patient was will be discharged home in stable condition. Her urine culture came back as E. coli with multidrug resistance, however, fair sensitivity to Augment, cefazolin, ceftriaxone, Cefuroxime, Macrobid and Zosyn. Given her allergy to cephalosporins, we will go with Macrobid. While she was here, she had azithromycin through the IV, so we will not continue the azithromycin as an outpatient for her bronchitis. I did speak with her one point regarding getting a spirometry. She says she gets bronchitis around 2 times a year, sometimes more. She does have a history of smoking and still smokes a minimal amount. She could have a degree of chronic obstructive pulmonary disease. I suggested she get a spirometry. She may need a long- acting beta agonist. She can followup with Dr. Jerry in 1 to 2 weeks. #[id number] [facility]
== END 2019-07-17 10:05 | disposition home or self-care (01) | DRG 690 ==
LOC: ER 12:45 → OBSVTOIN 18:07 → MS 18:07
PROVIDERS: ADMIT Nurse Practitioner Family; ATTEND Nurse Practitioner
PROC: BW211ZZ Computerized Tomography (CT Scan) of Abdomen and Pelvis using Low Osmolar Contrast (ICD-10-PCS; principal; 2019-07-13)
DX: N10 Acute pyelonephritis (principal); E87.1 Hypo-osmolality and hyponatremia; B96.20 Unspecified Escherichia coli [E. coli] as the cause of diseases classified elsewhere; J20.9 Acute bronchitis, unspecified; I10 Essential (primary) hypertension; G89.29 Other chronic pain; M54.9 Dorsalgia, unspecified; E86.0 Dehydration; R19.7 Diarrhea, unspecified; J42 Unspecified chronic bronchitis; E87.6 Hypokalemia; F17.210 Nicotine dependence, cigarettes, uncomplicated; Z16.24 Resistance to multiple antibiotics; Z98.1 Arthrodesis status; Z79.899 Other long term (current) drug therapy

== ENCOUNTER → 2020-03-14 | Outpatient (CLI) | payer BC | LOC: GMAM 11:30 | PROVIDERS: ATTEND Family Medicine | DX: E55.9 Vitamin D deficiency, unspecified (principal) ==

== ENCOUNTER → 2020-12-04 | Outpatient (CLI) | payer BC | LOC: GMAM 17:16 | PROVIDERS: ATTEND Family Medicine | DX: E55.9 Vitamin D deficiency, unspecified (principal) ==